=== PATIENT | male | born 1950 | race Two or more races ===

== ENCOUNTER 2021-06-10 10:41 | Emergency (ER) | payer OTHER ==
[~2021-06-10] VITALS: Ht 172.7 cm; Wt 72.6 kg
[2021-06-10] MEDS ORDERED: NAMENDA5 MG PO (10:45)
[2021-06-10] MEDS ORDERED: LEXAPRO20 MG PO (10:45)
[2021-06-10] MEDS ORDERED: SIMVASTATIN20 MG PO (10:49)
[2021-06-10] MEDS ORDERED: [UNRECOGNIZED DRUG - OTHER] (10:50)
[2021-06-10] MEDS ORDERED: SEROQUEL25 MG PO (16:32)
== END 2021-06-10 18:57 ==
LOC: ER 10:41
DX: G30.9 Alzheimer's disease, unspecified (principal); F02.80 Dementia in other diseases classified elsewhere, unspecified severity, without behavioral disturbance, psychotic disturbance, mood disturbance, and anxiety